=== PATIENT | male | born 1950 | race Two or more races ===

== ENCOUNTER → 2017-06-09 | Outpatient (CLI) | payer OTHER | END | disposition home or self-care (01) | LOC: EKG 11:06 | DX: C90.00 Multiple myeloma not having achieved remission (principal) | CPT/HCPCS: 93306 ==

== ENCOUNTER → 2017-07-03 | Outpatient (CLI) | payer OTHER | END | disposition home or self-care (01) | LOC: EKG 09:43 | DX: C90.00 Multiple myeloma not having achieved remission (principal) | CPT/HCPCS: 93005; 93306 ==